=== PATIENT | female | born 1955 ===

== ENCOUNTER → 2021-09-24 | Outpatient (CLI) | payer MEDICAID | END | disposition home or self-care (01) | LOC: XYW 08:40 | PROVIDERS: ATTEND Internal Medicine | DX: I07.1 Rheumatic tricuspid insufficiency (principal); I11.9 Hypertensive heart disease without heart failure | CPT/HCPCS: 93306 ==

== ENCOUNTER → 2021-10-22 | Outpatient (CLI) | payer MEDICAID ==
[~2021-10-22] VITALS: Ht 165.1 cm; Wt 83.9 kg
[~2021-10-22] MED LIST: ADENOSINE 70 MG in GIVE UN-DILUTED 0 ML IV STA
[2021-10-22 10:35] VITALS: BP 160/96
== END | disposition home or self-care (01) ==
LOC: XY 09:09
PROVIDERS: ATTEND Internal Medicine
DX: R07.9 Chest pain, unspecified (principal); R06.02 Shortness of breath; J43.9 Emphysema, unspecified; I12.9 Hypertensive chronic kidney disease with stage 1 through stage 4 chronic kidney disease, or unspecified chronic kidney disease; E11.22 Type 2 diabetes mellitus with diabetic chronic kidney disease; N18.4 Chronic kidney disease, stage 4 (severe); R63.8 Other symptoms and signs concerning food and fluid intake; Z87.891 Personal history of nicotine dependence
CPT/HCPCS: 78452; 93017; A9500; J0153